=== PATIENT | male | born 1930 | race Caucasian/White ===

== ENCOUNTER 2017-01-25 21:43 | Inpatient (IN) | payer MEDICARE, BC ==
[~2017-01-25] VITALS: Ht 177.8 cm; Wt 76.2 kg
[2017-01-25 22:25] LABS: BASOPHILS PERCENT AUTO 0 % (0-2); EOSINOPHILS PERCENT AUTO 0 % (0-6); Hematocrit 27.3 % (37.0-53.0); Hemoglobin 8.7 g/dL (13.5-17.5); IMMATURE GRAN ABSOLUTE AUTO 0.14 K/mm3 (0.00-0.10); IMMATURE GRAN PERCENT AUTO 1 % (0-1); LYMPHOCYTES ABSOLUTE AUTO 0.57 K/mm3 (0.84-5.20); LYMPHOCYTES PERCENT AUTO 4 % (21-46); MONOCYTES ABSOLUTE AUTO 0.33 K/mm3 (0.16-1.47); MONOCYTES PERCENT AUTO 2 % (4-13); Mean Corpuscular HGB 26.6 pg (26.0-34.0); Mean Corpuscular HGB Conc 31.9 g/dL (31.5-36.5); Mean Corpuscular Volume 84 fL (80-100); Mean Platelet Volume 9.6 fL (9.1-12.4); NEUTROPHILS PERCENT AUTO 93 % (41-73); NRBC ABSOLUTE 0.02 K/mm3 (0.00-0.02); NRBC Auto 0.2 /100 WBC (0.0-0.2); Platelet Count 300 K/mm3 (150-400); RDW Standard Deviation 48.7 fL (35.1-46.3); Red Blood Cell Count 3.27 M/mm3 (4.30-5.90); White Blood Cell Count 15.64 K/mm3 (4.00-11.30)
[2017-01-25 22:33] LABS: PCO2 Arterial 42.4 mmHg (35-45); PO2 Arterial 75.3 mmHg (80-100); pH Blood Arterial 7.29 (7.35-7.45)
[2017-01-25 22:41] LABS: Influenza A Negative (NEGATIVE); Influenza B Negative (NEGATIVE)
[2017-01-25 23:00] LABS: Albumin, Blood 2.1 g/dL (3.4-5.0); Albumin/Globulin Ratio 0.4 (0.8-1.8); Bilirubin, Total 0.3 mg/dL (0.1-1.0); Calcium, Blood 8.6 mg/dL (8.5-10.1); Creatinine, Blood 2.82 mg/dL (0.60-1.20); Globulin, Blood 4.7 g/dL (2.2-4.0); Potassium, Blood 4.5 mmol/L (3.5-5.5); Total Protein, Blood 6.8 g/dL (6.4-8.2)
[2017-01-25 23:10] LABS: Troponin I 1.24 ng/mL (0.000-0.040)
[2017-01-25 23:25] LABS: Source, Urine Catheter
[2017-01-25 23:28] LABS: Bilirubin, Urine Neg (Neg); Blood, Urine 5+ (Neg); Glucose Qualitative, Urine Neg (Neg); Ketones, Urine Neg (Neg); Leukocyte Esterase, Urine Neg (Neg); Nitrite, Urine Neg (Neg); Protein, Urine 3+ (Neg); Urobilinogen, Urine NORM (Normal)
[2017-01-25 23:42] LABS: Appearance, Urine Hazy (Clear); Color, Urine Yellow (P-Yellow)
[2017-01-25 23:43] LABS: Red Blood Cells, Urine 25-50 /hpf (0-2); Squamous Epithelial Cells Rare /hpf (Few)
[2017-01-25 23:44] LABS: Amorphous Light (0-Heavy); Bacteria Mod /hpf; Hyaline Casts 0-2 /lpf (0-2)
[2017-01-26] MEDS ORDERED: Norvasc5 MG PT (00:57)
[2017-01-26] MEDS ORDERED: TAMS.4ER PT (00:57)
[2017-01-26] MEDS ORDERED: ASCO500 PO (00:58)
[2017-01-26] MEDS ORDERED: LEVSOD100 PT (00:58)
[2017-01-26] MEDS ORDERED: Omeprazole20 M1 PT (00:58)
[2017-01-26] MEDS ORDERED: ZINC15 PT (00:59)
[2017-01-26] MEDS ORDERED: CALCITRATE200 MG PO (00:59)
[2017-01-26] MEDS ORDERED: CENTRUM SILVER1 EAC4 PO (00:59)
[2017-01-26] MEDS ORDERED: MIRALAX17 GM PO (01:00)
[2017-01-26] MEDS ORDERED: Adult Low Dose81 MG PT (01:00)
[2017-01-26 04:36] LABS: PCO2 Arterial 43.4 mmHg (35-45); PO2 Arterial 84.7 mmHg (80-100)
[2017-01-26 06:28] LABS: BASOPHILS ABSOLUTE AUTO 0.01 K/mm3 (0.00-0.23); BASOPHILS PERCENT AUTO 0 % (0-2); EOSINOPHILS PERCENT AUTO 0 % (0-6); Hematocrit 24.5 % (37.0-53.0); Hemoglobin 7.7 g/dL (13.5-17.5); IMMATURE GRAN ABSOLUTE AUTO 0.15 K/mm3 (0.00-0.10); IMMATURE GRAN PERCENT AUTO 1 % (0-1); LYMPHOCYTES ABSOLUTE AUTO 0.29 K/mm3 (0.84-5.20); LYMPHOCYTES PERCENT AUTO 2 % (21-46); MONOCYTES ABSOLUTE AUTO 0.33 K/mm3 (0.16-1.47); MONOCYTES PERCENT AUTO 3 % (4-13); Mean Corpuscular HGB 26.2 pg (26.0-34.0); Mean Corpuscular HGB Conc 31.4 g/dL (31.5-36.5); Mean Corpuscular Volume 83 fL (80-100); Mean Platelet Volume 9.8 fL (9.1-12.4); NEUTROPHILS ABSOLUTE AUTO 11.43 K/mm3 (1.96-9.15); NEUTROPHILS PERCENT AUTO 94 % (41-73); Platelet Count 242 K/mm3 (150-400); RDW Coefficient Variation 16.1 % (11.7-14.2); RDW Standard Deviation 48.7 fL (35.1-46.3); Red Blood Cell Count 2.94 M/mm3 (4.30-5.90); White Blood Cell Count 12.21 K/mm3 (4.00-11.30)
[2017-01-26 06:47] LABS: Albumin, Blood 1.7 g/dL (3.4-5.0); Albumin/Globulin Ratio 0.4 (0.8-1.8); Bilirubin, Total 0.3 mg/dL (0.1-1.0); Bun/Creatinine Ratio 17.4 (12.0-20.0); Calcium, Blood 8.3 mg/dL (8.5-10.1); Creatinine, Blood 2.76 mg/dL (0.60-1.20); Globulin, Blood 3.8 g/dL (2.2-4.0); Potassium, Blood 4.5 mmol/L (3.5-5.5); Total Protein, Blood 5.5 g/dL (6.4-8.2)
[2017-01-26 06:53] LABS: Troponin I 0.99 ng/mL (0.000-0.040)
[2017-01-26 14:54] LABS: Troponin I 0.721 ng/mL (0.000-0.040)
[2017-01-26 21:39] LABS: Vancomycin, Random 14.2 ug/mL
[2017-01-27 04:03] LABS: BASOPHILS ABSOLUTE AUTO 0.01 K/mm3 (0.00-0.23); BASOPHILS PERCENT AUTO 0 % (0-2); EOSINOPHILS PERCENT AUTO 0 % (0-6); Hematocrit 23.8 % (37.0-53.0); Hemoglobin 7.3 g/dL (13.5-17.5); IMMATURE GRAN ABSOLUTE AUTO 0.29 K/mm3 (0.00-0.10); IMMATURE GRAN PERCENT AUTO 2 % (0-1); LYMPHOCYTES ABSOLUTE AUTO 0.51 K/mm3 (0.84-5.20); LYMPHOCYTES PERCENT AUTO 4 % (21-46); MONOCYTES ABSOLUTE AUTO 0.52 K/mm3 (0.16-1.47); MONOCYTES PERCENT AUTO 4 % (4-13); Mean Corpuscular HGB Conc 30.7 g/dL (31.5-36.5); Mean Corpuscular Volume 85 fL (80-100); Mean Platelet Volume 9.9 fL (9.1-12.4); NEUTROPHILS ABSOLUTE AUTO 12.28 K/mm3 (1.96-9.15); NEUTROPHILS PERCENT AUTO 90 % (41-73); NRBC ABSOLUTE 0.05 K/mm3 (0.00-0.02); NRBC Auto 0.3 /100 WBC (0.0-0.2); Platelet Count 283 K/mm3 (150-400); RDW Coefficient Variation 16.3 % (11.7-14.2); RDW Standard Deviation 50.5 fL (35.1-46.3); Red Blood Cell Count 2.81 M/mm3 (4.30-5.90); White Blood Cell Count 13.61 K/mm3 (4.00-11.30)
[2017-01-27 04:24] LABS: Albumin, Blood 1.6 g/dL (3.4-5.0); Albumin/Globulin Ratio 0.4 (0.8-1.8); Bilirubin, Total 0.5 mg/dL (0.1-1.0); Bun/Creatinine Ratio 18.1 (12.0-20.0); Calcium, Blood 7.7 mg/dL (8.5-10.1); Creatinine, Blood 3.04 mg/dL (0.60-1.20); Globulin, Blood 3.7 g/dL (2.2-4.0); Magnesium, Blood 2.7 mg/dL (1.6-2.4); Phosphorus, Blood 4.5 mg/dL (2.5-4.9); Potassium, Blood 5.2 mmol/L (3.5-5.5); Total Protein, Blood 5.3 g/dL (6.4-8.2)
[2017-01-27 04:51] LABS: PCO2 Arterial 40.7 mmHg (35-45); PO2 Arterial 78.3 mmHg (80-100); pH Blood Arterial 7.34 (7.35-7.45)
[2017-01-27 12:46] LABS: pH Blood Arterial 7.27 (7.35-7.45)
[2017-01-27 12:47] LABS: PCO2 Arterial 45.9 mmHg (35-45); PO2 Arterial 107 mmHg (80-100)
[2017-01-27 14:47] LABS: Albumin, Blood 1.7 g/dL (3.4-5.0); Anion Gap 9 mmol/L (6-16); Blood Urea Nitrogen 62 mg/dL (8-24); Bun/Creatinine Ratio 19.4 (12.0-20.0); CO2, Blood 21 mmol/L (21-32); Chloride, Blood 107 mmol/L (98-108); Glomerular Filtration Rate 20 (60-); Glucose, Blood 160 mg/dL (70-99); Potassium, Blood 5.4 mmol/L (3.5-5.5); Sodium, Blood 137 mmol/L (136-145)
[2017-01-27 16:26] LABS: PCO2 Arterial 47.3 mmHg (35-45); PO2 Arterial 296 mmHg (80-100); pH Blood Arterial 7.27 (7.35-7.45)
[2017-01-28 03:53] LABS: Hematocrit 24.4 % (37.0-53.0); Hemoglobin 7.5 g/dL (13.5-17.5); Mean Corpuscular HGB Conc 30.7 g/dL (31.5-36.5); Mean Corpuscular Volume 85 fL (80-100); Mean Platelet Volume 9.5 fL (9.1-12.4); NRBC ABSOLUTE 0.04 K/mm3 (0.00-0.02); NRBC Auto 0.3 /100 WBC (0.0-0.2); Platelet Count 235 K/mm3 (150-400); RDW Coefficient Variation 16.5 % (11.7-14.2); RDW Standard Deviation 51.1 fL (35.1-46.3); Red Blood Cell Count 2.88 M/mm3 (4.30-5.90); White Blood Cell Count 14.48 K/mm3 (4.00-11.30)
[2017-01-28 04:13] LABS: BAND PERCENT MAN 1 % (0-8); BASOPHILS PERCENT MAN 0 % (0-2); EOSINOPHILS PERCENT MAN 0 % (0-6); LYMPHOCYTES ABSOLUTE MAN 0.86 K/mm3 (0.84-5.20); LYMPHOCYTES PERCENT MAN 6 % (21-46); METAMYELOCYTE ABSOLUTE MAN 0.14 K/mm3 (0.00-0.00); METAMYELOCYTE PERCENT MAN 1 % (0-0); MONOCYTES ABSOLUTE MAN 0.57 K/mm3 (0.16-1.47); MONOCYTES PERCENT MAN 4 % (4-13); MYELOCYTE ABSOLUTE MAN 0.14 K/mm3 (0.00-0.00); MYELOCYTE PERCENT MAN 1 % (0-0); NEUTROPHILS ABSOLUTE MAN 12.74 K/mm3 (1.96-9.15); SEG NEUTROPHILS PERCENT MAN 87 % (41-73); TOTAL CELLS COUNTED 100
[2017-01-28 04:14] LABS: Albumin, Blood 1.7 g/dL (3.4-5.0); Anion Gap 7 mmol/L (6-16); Blood Urea Nitrogen 72 mg/dL (8-24); Bun/Creatinine Ratio 20.2 (12.0-20.0); CO2, Blood 24 mmol/L (21-32); Calcium, Blood 7.5 mg/dL (8.5-10.1); Chloride, Blood 108 mmol/L (98-108); Creatinine, Blood 3.56 mg/dL (0.60-1.20); Glomerular Filtration Rate 17 (60-); Glucose, Blood 150 mg/dL (70-99); Magnesium, Blood 2.9 mg/dL (1.6-2.4); Phosphorus, Blood 5.4 mg/dL (2.5-4.9); Potassium, Blood 5.8 mmol/L (3.5-5.5); Sodium, Blood 139 mmol/L (136-145); Vancomycin, Random 23.6 ug/mL
[2017-01-28 05:12] LABS: PCO2 Arterial 46.7 mmHg (35-45); PO2 Arterial 191 mmHg (80-100); pH Blood Arterial 7.29 (7.35-7.45)
[2017-01-29 04:27] LABS: Hematocrit 25.4 % (37.0-53.0); Hemoglobin 7.8 g/dL (13.5-17.5); Mean Corpuscular HGB 26.1 pg (26.0-34.0); Mean Corpuscular HGB Conc 30.7 g/dL (31.5-36.5); Mean Corpuscular Volume 85 fL (80-100); Mean Platelet Volume 10.1 fL (9.1-12.4); NRBC ABSOLUTE 0.04 K/mm3 (0.00-0.02); NRBC Auto 0.2 /100 WBC (0.0-0.2); Platelet Count 257 K/mm3 (150-400); RDW Coefficient Variation 16.8 % (11.7-14.2); RDW Standard Deviation 51.9 fL (35.1-46.3); Red Blood Cell Count 2.99 M/mm3 (4.30-5.90); White Blood Cell Count 15.04 K/mm3 (4.00-11.30)
[2017-01-29 04:36] LABS: Anion Gap 10 mmol/L (6-16); Blood Urea Nitrogen 90 mg/dL (8-24); Bun/Creatinine Ratio 23.8 (12.0-20.0); CO2, Blood 23 mmol/L (21-32); Calcium, Blood 7.7 mg/dL (8.5-10.1); Chloride, Blood 107 mmol/L (98-108); Creatinine, Blood 3.78 mg/dL (0.60-1.20); Glomerular Filtration Rate 16 (60-); Glucose, Blood 135 mg/dL (70-99); Magnesium, Blood 2.7 mg/dL (1.6-2.4); Phosphorus, Blood 5.8 mg/dL (2.5-4.9); Potassium, Blood 5.6 mmol/L (3.5-5.5); Sodium, Blood 140 mmol/L (136-145); Vancomycin, Random 21.7 ug/mL
[2017-01-29 05:17] LABS: PCO2 Arterial 40.5 mmHg (35-45); PO2 Arterial 74.6 mmHg (80-100); pH Blood Arterial 7.34 (7.35-7.45)
[2017-01-29 06:41] LABS: BASOPHILS PERCENT MAN 0 % (0-2); EOSINOPHILS PERCENT MAN 0 % (0-6); LYMPHOCYTES PERCENT MAN 2 % (21-46); MONOCYTES PERCENT MAN 2 % (4-13); MYELOCYTE PERCENT MAN 2 % (0-0); NEUTROPHILS ABSOLUTE MAN 14.13 K/mm3 (1.96-9.15); SEG NEUTROPHILS PERCENT MAN 94 % (41-73); TOTAL CELLS COUNTED 100
[2017-01-30 03:53] LABS: Hematocrit 26.7 % (37.0-53.0); Hemoglobin 8.4 g/dL (13.5-17.5); Mean Corpuscular HGB 26.6 pg (26.0-34.0); Mean Corpuscular HGB Conc 31.5 g/dL (31.5-36.5); Mean Corpuscular Volume 85 fL (80-100); Mean Platelet Volume 10.1 fL (9.1-12.4); NRBC ABSOLUTE 0.04 K/mm3 (0.00-0.02); NRBC Auto 0.2 /100 WBC (0.0-0.2); Platelet Count 256 K/mm3 (150-400); RDW Standard Deviation 51.8 fL (35.1-46.3); Red Blood Cell Count 3.16 M/mm3 (4.30-5.90); White Blood Cell Count 18.65 K/mm3 (4.00-11.30)
[2017-01-30 04:10] LABS: Anion Gap 10 mmol/L (6-16); Blood Urea Nitrogen 96 mg/dL (8-24); Bun/Creatinine Ratio 27.4 (12.0-20.0); CO2, Blood 22 mmol/L (21-32); Calcium, Blood 7.9 mg/dL (8.5-10.1); Chloride, Blood 109 mmol/L (98-108); Glomerular Filtration Rate 18 (60-); Glucose, Blood 134 mg/dL (70-99); Magnesium, Blood 2.6 mg/dL (1.6-2.4); Phosphorus, Blood 5.4 mg/dL (2.5-4.9); Potassium, Blood 5.4 mmol/L (3.5-5.5); Sodium, Blood 141 mmol/L (136-145); Vancomycin, Random 17.9 ug/mL
[2017-01-31 03:22] LABS: Hemoglobin 9.1 g/dL (13.5-17.5); Mean Corpuscular HGB 26.5 pg (26.0-34.0); Mean Corpuscular HGB Conc 31.4 g/dL (31.5-36.5); Mean Corpuscular Volume 85 fL (80-100); Mean Platelet Volume 10.3 fL (9.1-12.4); NRBC ABSOLUTE 0.03 K/mm3 (0.00-0.02); NRBC Auto 0.1 /100 WBC (0.0-0.2); Platelet Count 263 K/mm3 (150-400); RDW Coefficient Variation 16.8 % (11.7-14.2); RDW Standard Deviation 52.2 fL (35.1-46.3); Red Blood Cell Count 3.43 M/mm3 (4.30-5.90); White Blood Cell Count 17.54 K/mm3 (4.00-11.30)
[2017-01-31 03:38] LABS: Albumin, Blood 2.1 g/dL (3.4-5.0); Anion Gap 9 mmol/L (6-16); Blood Urea Nitrogen 108 mg/dL (8-24); CO2, Blood 24 mmol/L (21-32); Calcium, Blood 8.1 mg/dL (8.5-10.1); Chloride, Blood 111 mmol/L (98-108); Creatinine, Blood 3.48 mg/dL (0.60-1.20); Glomerular Filtration Rate 18 (60-); Glucose, Blood 158 mg/dL (70-99); Magnesium, Blood 2.8 mg/dL (1.6-2.4); Phosphorus, Blood 5.8 mg/dL (2.5-4.9); Potassium, Blood 4.9 mmol/L (3.5-5.5); Sodium, Blood 144 mmol/L (136-145)
[2017-01-31 03:39] LABS: Vancomycin, Random 24.8 ug/mL
[2017-02-01 03:57] LABS: Hematocrit 28.4 % (37.0-53.0); Hemoglobin 8.8 g/dL (13.5-17.5); Mean Corpuscular HGB 26.5 pg (26.0-34.0); Mean Corpuscular Volume 86 fL (80-100); Mean Platelet Volume 10.4 fL (9.1-12.4); NRBC ABSOLUTE 0.02 K/mm3 (0.00-0.02); NRBC Auto 0.2 /100 WBC (0.0-0.2); Platelet Count 220 K/mm3 (150-400); RDW Coefficient Variation 16.8 % (11.7-14.2); RDW Standard Deviation 51.7 fL (35.1-46.3); Red Blood Cell Count 3.32 M/mm3 (4.30-5.90); White Blood Cell Count 12.16 K/mm3 (4.00-11.30)
[2017-02-01 04:14] LABS: Albumin, Blood 2.1 g/dL (3.4-5.0); Anion Gap 11 mmol/L (6-16); Blood Urea Nitrogen 113 mg/dL (8-24); Bun/Creatinine Ratio 31.7 (12.0-20.0); CO2, Blood 24 mmol/L (21-32); Calcium, Blood 8.7 mg/dL (8.5-10.1); Chloride, Blood 109 mmol/L (98-108); Creatinine, Blood 3.56 mg/dL (0.60-1.20); Glomerular Filtration Rate 17 (60-); Glucose, Blood 142 mg/dL (70-99); Magnesium, Blood 2.7 mg/dL (1.6-2.4); Phosphorus, Blood 4.8 mg/dL (2.5-4.9); Potassium, Blood 4.4 mmol/L (3.5-5.5); Sodium, Blood 144 mmol/L (136-145); Vancomycin, Random 19.4 ug/mL
[2017-02-02 04:12] LABS: Hematocrit 30.6 % (37.0-53.0); Hemoglobin 9.4 g/dL (13.5-17.5); Mean Corpuscular HGB 26.5 pg (26.0-34.0); Mean Corpuscular HGB Conc 30.7 g/dL (31.5-36.5); Mean Corpuscular Volume 86 fL (80-100); Mean Platelet Volume 10.5 fL (9.1-12.4); Platelet Count 219 K/mm3 (150-400); RDW Coefficient Variation 16.9 % (11.7-14.2); RDW Standard Deviation 52.7 fL (35.1-46.3); Red Blood Cell Count 3.55 M/mm3 (4.30-5.90); White Blood Cell Count 13.79 K/mm3 (4.00-11.30)
[2017-02-02 04:36] LABS: Anion Gap 12 mmol/L (6-16); Blood Urea Nitrogen 112 mg/dL (8-24); Bun/Creatinine Ratio 32.2 (12.0-20.0); CO2, Blood 24 mmol/L (21-32); Calcium, Blood 8.6 mg/dL (8.5-10.1); Chloride, Blood 113 mmol/L (98-108); Creatinine, Blood 3.48 mg/dL (0.60-1.20); Glomerular Filtration Rate 18 (60-); Glucose, Blood 111 mg/dL (70-99); Magnesium, Blood 2.7 mg/dL (1.6-2.4); Phosphorus, Blood 4.6 mg/dL (2.5-4.9); Sodium, Blood 149 mmol/L (136-145)
[2017-02-02 06:05] LABS: BAND PERCENT MAN 5 % (0-8); BASOPHILS PERCENT MAN 0 % (0-2); EOSINOPHILS PERCENT MAN 0 % (0-6); LYMPHOCYTES ABSOLUTE MAN 0.68 K/mm3 (0.84-5.20); LYMPHOCYTES PERCENT MAN 5 % (21-46); MONOCYTES ABSOLUTE MAN 0.68 K/mm3 (0.16-1.47); MONOCYTES PERCENT MAN 5 % (4-13); MYELOCYTE ABSOLUTE MAN 0.13 K/mm3 (0.00-0.00); MYELOCYTE PERCENT MAN 1 % (0-0); NEUTROPHILS ABSOLUTE MAN 12.27 K/mm3 (1.96-9.15); SEG NEUTROPHILS PERCENT MAN 84 % (41-73); TOTAL CELLS COUNTED 100
[2017-02-03 03:37] LABS: Hematocrit 32.5 % (37.0-53.0); Mean Corpuscular HGB 26.7 pg (26.0-34.0); Mean Corpuscular HGB Conc 30.8 g/dL (31.5-36.5); Mean Corpuscular Volume 87 fL (80-100); Mean Platelet Volume 11.3 fL (9.1-12.4); NRBC ABSOLUTE 0.04 K/mm3 (0.00-0.02); NRBC Auto 0.3 /100 WBC (0.0-0.2); Platelet Count 181 K/mm3 (150-400); RDW Coefficient Variation 17.6 % (11.7-14.2); RDW Standard Deviation 53.7 fL (35.1-46.3); Red Blood Cell Count 3.75 M/mm3 (4.30-5.90); White Blood Cell Count 12.95 K/mm3 (4.00-11.30)
[2017-02-03 03:55] LABS: Bun/Creatinine Ratio 30.1 (12.0-20.0); Calcium, Blood 8.8 mg/dL (8.5-10.1); Creatinine, Blood 3.62 mg/dL (0.60-1.20); Magnesium, Blood 2.8 mg/dL (1.6-2.4); Phosphorus, Blood 3.9 mg/dL (2.5-4.9); Potassium, Blood 3.7 mmol/L (3.5-5.5)
[2017-02-03 04:08] LABS: BAND PERCENT MAN 3 % (0-8); BASOPHILS PERCENT MAN 0 % (0-2); EOSINOPHILS PERCENT MAN 0 % (0-6); LYMPHOCYTES PERCENT MAN 7 % (21-46); METAMYELOCYTE ABSOLUTE MAN 0.25 K/mm3 (0.00-0.00); METAMYELOCYTE PERCENT MAN 2 % (0-0); MONOCYTES ABSOLUTE MAN 0.64 K/mm3 (0.16-1.47); MONOCYTES PERCENT MAN 5 % (4-13); MYELOCYTE ABSOLUTE MAN 0.51 K/mm3 (0.00-0.00); MYELOCYTE PERCENT MAN 4 % (0-0); NEUTROPHILS ABSOLUTE MAN 10.61 K/mm3 (1.96-9.15); SEG NEUTROPHILS PERCENT MAN 79 % (41-73); TOTAL CELLS COUNTED 100
[2017-02-03 04:48] LABS: PCO2 Arterial 34.9 mmHg (35-45); pH Blood Arterial 7.45 (7.35-7.45)
[2017-02-04 04:14] LABS: Albumin, Blood 2.2 g/dL (3.4-5.0); Anion Gap 11 mmol/L (6-16); Blood Urea Nitrogen 107 mg/dL (8-24); Bun/Creatinine Ratio 27.9 (12.0-20.0); CO2, Blood 24 mmol/L (21-32); Calcium, Blood 8.6 mg/dL (8.5-10.1); Chloride, Blood 116 mmol/L (98-108); Creatinine, Blood 3.84 mg/dL (0.60-1.20); Glomerular Filtration Rate 16 (60-); Glucose, Blood 148 mg/dL (70-99); Phosphorus, Blood 3.7 mg/dL (2.5-4.9); Sodium, Blood 151 mmol/L (136-145)
[2017-02-05 04:14] LABS: Albumin, Blood 2.2 g/dL (3.4-5.0); Anion Gap 9 mmol/L (6-16); Blood Urea Nitrogen 93 mg/dL (8-24); Bun/Creatinine Ratio 25.5 (12.0-20.0); CO2, Blood 22 mmol/L (21-32); Calcium, Blood 8.6 mg/dL (8.5-10.1); Chloride, Blood 120 mmol/L (98-108); Creatinine, Blood 3.64 mg/dL (0.60-1.20); Glomerular Filtration Rate 17 (60-); Glucose, Blood 91 mg/dL (70-99); Phosphorus, Blood 3.6 mg/dL (2.5-4.9); Potassium, Blood 3.4 mmol/L (3.5-5.5); Sodium, Blood 151 mmol/L (136-145)
[2017-02-06 03:54] LABS: Albumin, Blood 2.2 g/dL (3.4-5.0); Anion Gap 8 mmol/L (6-16); Blood Urea Nitrogen 85 mg/dL (8-24); Bun/Creatinine Ratio 23.2 (12.0-20.0); CO2, Blood 23 mmol/L (21-32); Calcium, Blood 8.5 mg/dL (8.5-10.1); Chloride, Blood 117 mmol/L (98-108); Creatinine, Blood 3.67 mg/dL (0.60-1.20); Glomerular Filtration Rate 17 (60-); Glucose, Blood 101 mg/dL (70-99); Magnesium, Blood 2.5 mg/dL (1.6-2.4); Potassium, Blood 3.3 mmol/L (3.5-5.5); Sodium, Blood 148 mmol/L (136-145)
[2017-02-07 04:37] LABS: Albumin, Blood 2.1 g/dL (3.4-5.0); Anion Gap 9 mmol/L (6-16); Blood Urea Nitrogen 80 mg/dL (8-24); Bun/Creatinine Ratio 22.1 (12.0-20.0); CO2, Blood 22 mmol/L (21-32); Calcium, Blood 8.2 mg/dL (8.5-10.1); Chloride, Blood 115 mmol/L (98-108); Creatinine, Blood 3.62 mg/dL (0.60-1.20); Glomerular Filtration Rate 17 (60-); Glucose, Blood 89 mg/dL (70-99); Phosphorus, Blood 3.7 mg/dL (2.5-4.9); Potassium, Blood 3.4 mmol/L (3.5-5.5); Sodium, Blood 146 mmol/L (136-145)
[2017-02-08 10:51] LABS: Hematocrit 28.6 % (37.0-53.0); Hemoglobin 8.7 g/dL (13.5-17.5)
[2017-02-08 12:16] LABS: Albumin, Blood 2.1 g/dL (3.4-5.0); Anion Gap 10 mmol/L (6-16); Blood Urea Nitrogen 75 mg/dL (8-24); Bun/Creatinine Ratio 20.3 (12.0-20.0); CO2, Blood 19 mmol/L (21-32); Calcium, Blood 8.2 mg/dL (8.5-10.1); Chloride, Blood 114 mmol/L (98-108); Creatinine, Blood 3.69 mg/dL (0.60-1.20); Glomerular Filtration Rate 16 (60-); Glucose, Blood 91 mg/dL (70-99); Phosphorus, Blood 3.7 mg/dL (2.5-4.9); Potassium, Blood 3.7 mmol/L (3.5-5.5); Sodium, Blood 143 mmol/L (136-145)
[2017-02-09 05:25] LABS: BASOPHILS ABSOLUTE AUTO 0.01 K/mm3 (0.00-0.23); BASOPHILS PERCENT AUTO 0 % (0-2); EOSINOPHILS ABSOLUTE AUTO 0.53 K/mm3 (0.00-0.68); EOSINOPHILS PERCENT AUTO 7 % (0-6); Hematocrit 29.5 % (37.0-53.0); Hemoglobin 9.2 g/dL (13.5-17.5); IMMATURE GRAN ABSOLUTE AUTO 0.05 K/mm3 (0.00-0.10); IMMATURE GRAN PERCENT AUTO 1 % (0-1); LYMPHOCYTES ABSOLUTE AUTO 0.79 K/mm3 (0.84-5.20); LYMPHOCYTES PERCENT AUTO 10 % (21-46); MONOCYTES ABSOLUTE AUTO 0.38 K/mm3 (0.16-1.47); MONOCYTES PERCENT AUTO 5 % (4-13); Mean Corpuscular HGB 26.6 pg (26.0-34.0); Mean Corpuscular HGB Conc 31.2 g/dL (31.5-36.5); Mean Corpuscular Volume 85 fL (80-100); Mean Platelet Volume 11.8 fL (9.1-12.4); NEUTROPHILS ABSOLUTE AUTO 6.43 K/mm3 (1.96-9.15); NEUTROPHILS PERCENT AUTO 79 % (41-73); Platelet Count 120 K/mm3 (150-400); RDW Coefficient Variation 18.4 % (11.7-14.2); RDW Standard Deviation 56.1 fL (35.1-46.3); Red Blood Cell Count 3.46 M/mm3 (4.30-5.90); White Blood Cell Count 8.19 K/mm3 (4.00-11.30)
[2017-02-09 06:05] LABS: Bun/Creatinine Ratio 19.1 (12.0-20.0); Calcium, Blood 8.2 mg/dL (8.5-10.1); Creatinine, Blood 3.77 mg/dL (0.60-1.20); Potassium, Blood 4.1 mmol/L (3.5-5.5)
[2017-02-10 05:56] LABS: Albumin, Blood 2.3 g/dL (3.4-5.0); Anion Gap 11 mmol/L (6-16); Blood Urea Nitrogen 67 mg/dL (8-24); Bun/Creatinine Ratio 16.3 (12.0-20.0); CO2, Blood 19 mmol/L (21-32); Calcium, Blood 8.2 mg/dL (8.5-10.1); Chloride, Blood 111 mmol/L (98-108); Glomerular Filtration Rate 15 (60-); Glucose, Blood 90 mg/dL (70-99); Magnesium, Blood 2.1 mg/dL (1.6-2.4); Phosphorus, Blood 4.7 mg/dL (2.5-4.9); Potassium, Blood 4.2 mmol/L (3.5-5.5); Sodium, Blood 141 mmol/L (136-145)
[2017-02-11 04:37] LABS: Source, Urine Catheter
[2017-02-11 04:41] LABS: Bilirubin, Urine Neg (Neg); Blood, Urine 4+ (Neg); Glucose Qualitative, Urine Neg (Neg); Ketones, Urine Neg (Neg); Leukocyte Esterase, Urine 3+ (Neg); Nitrite, Urine Neg (Neg); Protein, Urine 3+ (Neg); Urobilinogen, Urine NORM (Normal)
[2017-02-11 04:48] LABS: Appearance, Urine Turbid (Clear); Bacteria Few /hpf; Color, Urine Yellow (P-Yellow); Squamous Epithelial Cells Not Seen /hpf (Few); White Blood Cells, Urine TNTC /hpf (0-5); Yeast/Fungi Urine Many /hpf
[2017-02-11 06:55] LABS: Bun/Creatinine Ratio 16.6 (12.0-20.0); Calcium, Blood 8.5 mg/dL (8.5-10.1); Creatinine, Blood 4.16 mg/dL (0.60-1.20); Magnesium, Blood 2.5 mg/dL (1.6-2.4); Phosphorus, Blood 3.6 mg/dL (2.5-4.9); Potassium, Blood 4.2 mmol/L (3.5-5.5)
[2017-02-12 05:11] LABS: BASOPHILS ABSOLUTE AUTO 0.01 K/mm3 (0.00-0.23); BASOPHILS PERCENT AUTO 0 % (0-2); EOSINOPHILS ABSOLUTE AUTO 0.36 K/mm3 (0.00-0.68); EOSINOPHILS PERCENT AUTO 6 % (0-6); Hematocrit 28.1 % (37.0-53.0); Hemoglobin 8.9 g/dL (13.5-17.5); IMMATURE GRAN ABSOLUTE AUTO 0.01 K/mm3 (0.00-0.10); IMMATURE GRAN PERCENT AUTO 0 % (0-1); LYMPHOCYTES ABSOLUTE AUTO 0.54 K/mm3 (0.84-5.20); LYMPHOCYTES PERCENT AUTO 8 % (21-46); MONOCYTES ABSOLUTE AUTO 0.39 K/mm3 (0.16-1.47); MONOCYTES PERCENT AUTO 6 % (4-13); Mean Corpuscular HGB 27.2 pg (26.0-34.0); Mean Corpuscular HGB Conc 31.7 g/dL (31.5-36.5); Mean Corpuscular Volume 86 fL (80-100); Mean Platelet Volume 11.4 fL (9.1-12.4); NEUTROPHILS ABSOLUTE AUTO 5.22 K/mm3 (1.96-9.15); NEUTROPHILS PERCENT AUTO 80 % (41-73); Platelet Count 135 K/mm3 (150-400); RDW Coefficient Variation 19.9 % (11.7-14.2); Red Blood Cell Count 3.27 M/mm3 (4.30-5.90); White Blood Cell Count 6.53 K/mm3 (4.00-11.30)
[2017-02-12 05:35] LABS: Magnesium, Blood 2.3 mg/dL (1.6-2.4)
[2017-02-12 05:36] LABS: Calcium, Blood 8.4 mg/dL (8.5-10.1); Creatinine, Blood 3.93 mg/dL (0.60-1.20); Phosphorus, Blood 3.7 mg/dL (2.5-4.9); Potassium, Blood 4.1 mmol/L (3.5-5.5)
[2017-02-13 05:07] LABS: BASOPHILS PERCENT AUTO 0 % (0-2); EOSINOPHILS ABSOLUTE AUTO 0.01 K/mm3 (0.00-0.68); EOSINOPHILS PERCENT AUTO 0 % (0-6); Hemoglobin 9.4 g/dL (13.5-17.5); IMMATURE GRAN ABSOLUTE AUTO 0.02 K/mm3 (0.00-0.10); IMMATURE GRAN PERCENT AUTO 0 % (0-1); LYMPHOCYTES PERCENT AUTO 9 % (21-46); MONOCYTES ABSOLUTE AUTO 0.26 K/mm3 (0.16-1.47); MONOCYTES PERCENT AUTO 5 % (4-13); Mean Corpuscular HGB Conc 31.3 g/dL (31.5-36.5); Mean Corpuscular Volume 86 fL (80-100); Mean Platelet Volume 10.9 fL (9.1-12.4); NEUTROPHILS ABSOLUTE AUTO 4.89 K/mm3 (1.96-9.15); NEUTROPHILS PERCENT AUTO 86 % (41-73); Platelet Count 139 K/mm3 (150-400); RDW Coefficient Variation 20.1 % (11.7-14.2); RDW Standard Deviation 63.3 fL (35.1-46.3); Red Blood Cell Count 3.48 M/mm3 (4.30-5.90); White Blood Cell Count 5.68 K/mm3 (4.00-11.30)
[2017-02-13 05:34] LABS: Bun/Creatinine Ratio 16.5 (12.0-20.0); Calcium, Blood 8.5 mg/dL (8.5-10.1); Creatinine, Blood 3.81 mg/dL (0.60-1.20); Potassium, Blood 4.4 mmol/L (3.5-5.5)
[2017-02-14 05:34] LABS: BASOPHILS ABSOLUTE AUTO 0.01 K/mm3 (0.00-0.23); BASOPHILS PERCENT AUTO 0 % (0-2); EOSINOPHILS ABSOLUTE AUTO 0.44 K/mm3 (0.00-0.68); EOSINOPHILS PERCENT AUTO 5 % (0-6); Hematocrit 33.4 % (37.0-53.0); Hemoglobin 10.2 g/dL (13.5-17.5); IMMATURE GRAN ABSOLUTE AUTO 0.04 K/mm3 (0.00-0.10); IMMATURE GRAN PERCENT AUTO 1 % (0-1); LYMPHOCYTES ABSOLUTE AUTO 0.68 K/mm3 (0.84-5.20); LYMPHOCYTES PERCENT AUTO 8 % (21-46); MONOCYTES ABSOLUTE AUTO 0.52 K/mm3 (0.16-1.47); MONOCYTES PERCENT AUTO 6 % (4-13); Mean Corpuscular HGB 27.4 pg (26.0-34.0); Mean Corpuscular HGB Conc 30.5 g/dL (31.5-36.5); Mean Platelet Volume 11.4 fL (9.1-12.4); NEUTROPHILS PERCENT AUTO 79 % (41-73); Platelet Count 126 K/mm3 (150-400); RDW Coefficient Variation 20.6 % (11.7-14.2); RDW Standard Deviation 67.3 fL (35.1-46.3); Red Blood Cell Count 3.72 M/mm3 (4.30-5.90); White Blood Cell Count 8.19 K/mm3 (4.00-11.30)
[2017-02-14 05:36] LABS: Mean Corpuscular Volume 90 fL (80-100)
[2017-02-14 05:59] LABS: Bun/Creatinine Ratio 15.8 (12.0-20.0); Calcium, Blood 8.6 mg/dL (8.5-10.1); Creatinine, Blood 3.74 mg/dL (0.60-1.20); Potassium, Blood 4.5 mmol/L (3.5-5.5)
[2017-02-15 05:46] LABS: Bun/Creatinine Ratio 18.6 (12.0-20.0); Calcium, Blood 8.5 mg/dL (8.5-10.1); Creatinine, Blood 3.61 mg/dL (0.60-1.20); Potassium, Blood 4.4 mmol/L (3.5-5.5)
[2017-02-17 06:48] LABS: Anion Gap 10 mmol/L (6-16); Blood Urea Nitrogen 75 mg/dL (8-24); Bun/Creatinine Ratio 18.8 (12.0-20.0); CO2, Blood 24 mmol/L (21-32); Calcium, Blood 8.4 mg/dL (8.5-10.1); Chloride, Blood 116 mmol/L (98-108); Creatinine, Blood 3.99 mg/dL (0.60-1.20); Glomerular Filtration Rate 15 (60-); Glucose, Blood 90 mg/dL (70-99); Magnesium, Blood 2.5 mg/dL (1.6-2.4); Phosphorus, Blood 2.8 mg/dL (2.5-4.9); Potassium, Blood 4.4 mmol/L (3.5-5.5); Sodium, Blood 150 mmol/L (136-145)
[2017-02-17 07:44] LABS: BASOPHILS ABSOLUTE AUTO 0.01 K/mm3 (0.00-0.23); BASOPHILS PERCENT AUTO 0 % (0-2); EOSINOPHILS ABSOLUTE AUTO 0.71 K/mm3 (0.00-0.68); EOSINOPHILS PERCENT AUTO 11 % (0-6); Hematocrit 30.6 % (37.0-53.0); Hemoglobin 9.2 g/dL (13.5-17.5); IMMATURE GRAN ABSOLUTE AUTO 0.05 K/mm3 (0.00-0.10); IMMATURE GRAN PERCENT AUTO 1 % (0-1); LYMPHOCYTES ABSOLUTE AUTO 0.55 K/mm3 (0.84-5.20); LYMPHOCYTES PERCENT AUTO 8 % (21-46); MONOCYTES PERCENT AUTO 5 % (4-13); Mean Corpuscular HGB Conc 30.1 g/dL (31.5-36.5); Mean Corpuscular Volume 90 fL (80-100); Mean Platelet Volume 10.7 fL (9.1-12.4); NEUTROPHILS ABSOLUTE AUTO 5.02 K/mm3 (1.96-9.15); NEUTROPHILS PERCENT AUTO 76 % (41-73); Platelet Count 135 K/mm3 (150-400); RDW Coefficient Variation 20.7 % (11.7-14.2); RDW Standard Deviation 67.6 fL (35.1-46.3); Red Blood Cell Count 3.41 M/mm3 (4.30-5.90); White Blood Cell Count 6.64 K/mm3 (4.00-11.30)
[2017-02-18] MEDS ORDERED: FINA5 PT (08:48)
[2017-02-18] MEDS ORDERED: MORP20L SL (08:48)
[2017-02-18] MEDS ORDERED: LORA2L PO (08:49)
[2017-02-18] MEDS ORDERED: Acetaminophen325 M1 PO (08:50)
[2017-02-18] MEDS ORDERED: Albuterol2.5 MG/0.5 INH (08:51)
[2017-02-18] MEDS ORDERED: Refresh Plus1 EACH BOTHEYES (08:53)
[2017-02-18] MEDS ORDERED: SACC250C PT (08:54)
== END 2017-02-18 10:08 | disposition hospice, inpatient (51) | DRG 207 ==
LOC: ER 21:43 → ICUW 22:30 → ICUE 22:30 → PCU 22:30 → MEDS 22:30 → ICUE 23:08 → PCU 02-03 13:00 → MEDS 02-07 17:54
PROVIDERS: Emergency Medicine; Family Medicine; Hospitalist; Internal Medicine; Internal Medicine Critical Care Medicine; Internal Medicine Nephrology
PROC: 5A1955Z Respiratory Ventilation, Greater than 96 Consecutive Hours (ICD-10-PCS; principal; 2017-01-25)
PROC: 0DJ08ZZ Inspection of Upper Intestinal Tract, Via Natural or Artificial Opening Endoscopic (ICD-10-PCS; 2017-02-09)
PROC: 0DH63UZ Insertion of Feeding Device into Stomach, Percutaneous Approach (ICD-10-PCS; 2017-02-09)
DX: J96.01 Acute respiratory failure with hypoxia (principal); N17.0 Acute kidney failure with tubular necrosis; J69.0 Pneumonitis due to inhalation of food and vomit; G93.41 Metabolic encephalopathy; E46 Unspecified protein-calorie malnutrition; E87.0 Hyperosmolality and hypernatremia; E87.2 Acidosis; E87.4 Mixed disorder of acid-base balance; R13.10 Dysphagia, unspecified; J44.1 Chronic obstructive pulmonary disease with (acute) exacerbation; N18.4 Chronic kidney disease, stage 4 (severe); N39.0 Urinary tract infection, site not specified; E87.5 Hyperkalemia; D64.9 Anemia, unspecified; D72.829 Elevated white blood cell count, unspecified; E03.9 Hypothyroidism, unspecified; E83.39 Other disorders of phosphorus metabolism; E86.1 Hypovolemia; E87.6 Hypokalemia; E87.79 Other fluid overload; E88.09 Other disorders of plasma-protein metabolism, not elsewhere classified; J84.112 Idiopathic pulmonary fibrosis; I12.9 Hypertensive chronic kidney disease with stage 1 through stage 4 chronic kidney disease, or unspecified chronic kidney disease; N40.0 Benign prostatic hyperplasia without lower urinary tract symptoms; Z79.52 Long term (current) use of systemic steroids; Z77.090 Contact with and (suspected) exposure to asbestos; Z51.5 Encounter for palliative care
CPT/HCPCS: 31720; 36415; 36600; 51701; 51702; 51703; 70450; 71010; 71250; 74000; 74230; 76770; 80048; 80053; 80069; 80202; 81001; 82330; 82550; 82803; 82947; 83605; 83735; 83880; 84100; 84145; 84484; 85014; 85018; 85025; 85027; 87040; 87070; 87086; 87102; 87205; 87493; 87804; 92526; 92610; 92611; 93005; 93010; 93306; 94002; 94003; 94640; 94760; 96365; 96375; 97110; 97163; 97166; 97530; 97535; 99291; 99292; C1769; C9113; G8978; G8979; G8987; G8988; G8996; G8997; G8998; J0360; J0881; J1450; J1644; J1650; J1940; J1956; J2001; J2060; J2250; J2543; J2920; J2930; J3010; J3370; J3480; J7050; J7070; J7120; P9041